=== PATIENT | female | born 1970 | race Caucasian/White ===

== ENCOUNTER 2024-12-30 06:26 | Day surgery (SDC) | payer MEDICAID, OTHER ==
[2024-12-30] MEDS ORDERED: Midazolam 1 MG/ML 2 ML SDV ONE (07:20)
[2024-12-30] MEDS ORDERED: fentaNYL 50 MCG/ML SDV ONE (07:21)
[2024-12-30] MEDS ORDERED: Propofol 200 MG/20 ML SDV ONE ×2 (07:21→07:48)
[2024-12-30] MEDS: Lactated Ringers 1,000 ML IV SCH (07:21)
== END 2024-12-30 09:11 | disposition home or self-care (01) ==
LOC: JP.SDS 06:26
PROVIDERS: ATTEND Surgery
DX: Z12.11 Encounter for screening for malignant neoplasm of colon (principal); D12.3 Benign neoplasm of transverse colon; K63.5 Polyp of colon; F17.200 Nicotine dependence, unspecified, uncomplicated; Z88.5 Allergy status to narcotic agent
CPT/HCPCS: 00811; 45380; 45385; J2250; J2704; J3010; J7120